=== PATIENT | female | born 1945 | race Two or more races ===

== ENCOUNTER 2016-11-30 17:28 | Emergency (ER) | payer OTHER ==
[~2016-11-30] VITALS: Ht 162.6 cm; Wt 60.6 kg
[~2016-11-30 17:28] MED LIST: BACTRIM,SEPT1 TABLET PO; FARXIGA5 MG PO; GLUCOTROL10 MG PO; LISINOPRIL5 MG PO; METFORMIN HCL1000 MG PO; MOTRIN800 MG PO; NAPROXEN500 MG PO
[2016-11-30 18:06] LABS: HEMATOCRIT 41.7 % (36.0-46.0); MCH 24.7 PG (29.0-34.0); MCHC 33.6 G/DL (30.0-36.0); MCV 73.5 FL (83-99); MEAN PLAT.VOLUME 10.5 uM^3 (9.5-12.4); PLATELET COUNT 309 K/uL (156-360); RBC DIS.WIDTH-CV 14.9 % (11.8-14.6); RED BLOOD COUNT 5.67 M/uL (3.80-5.20); WHITE BLOOD COUNT 11.7 K/uL (4.1-10.2)
[2016-11-30 18:14] LABS: CHLORIDE 100 mEq/L (99-109); POTASSIUM 4.3 mEq/L (3.7-5.4); SODIUM 135 mEq/L (136-147)
[2016-11-30 18:16] LABS: GLUCOSE 169 mg/dL (70-99)
[2016-11-30 18:18] LABS: ANION GAP 13 MEQ/L (2-14); TOTAL BILIRUBIN 0.4 mg/dL (0.0-1.0)
[2016-11-30 18:20] LABS: ALKALINE PHOSPHATASE 116 IU/L (3-129); GFR ESTIMATE (CALCULATED) > 59 mL/min/
[2016-11-30 18:21] LABS: UREA NITROGEN (BUN) 15 mg/dL (9-23)
[2016-11-30 22:17] LABS: ADD MIUA? NO; BILIRUBIN NEGATIVE; BLOOD NEGATIVE; COLOR YELLOW ((YELLOW)); GLUCOSE (STRIP) >=1000; KETONES 40; LEUKOCYTES NEGATIVE; NITRITE NEGATIVE; PROTEIN (STRIP) NEGATIVE; SPECIFIC GRAVITY 1.035 (1.000-1.030); UCUL ADDED? NO; UROBILINOGEN 0.2 MG/DL (0.2-1.0)
[2016-11-30] MEDS ORDERED: ZOFRAN ODT4 MG PO (23:11)
[2016-11-30 23:36] VITALS: BP 140/79
== END 2016-11-30 23:41 | disposition home or self-care (01) ==
LOC: EME 17:28
DX: R10.33 Periumbilical pain (principal); R11.2 Nausea with vomiting, unspecified; R19.7 Diarrhea, unspecified; E11.9 Type 2 diabetes mellitus without complications; I10 Essential (primary) hypertension
CPT/HCPCS: 74176; 80053; 81003; 85027; 93005; 99281; 99284